=== PATIENT | male | born 1970 | race Caucasian/White ===

== ENCOUNTER 2018-10-18 23:22 | Emergency (ER) | payer MEDICARE, MEDICAID ==
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
[2018-10-19 00:19] VITALS: BP 106/71
[2018-10-19 01:46] VITALS: PULSE 68; O2SAT 98
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
== END 2018-10-19 01:48 | disposition home or self-care (01) ==
LOC: ED 23:22
DX: S02.0XXA Fracture of vault of skull, initial encounter for closed fracture (principal); Y04.0XXA Assault by unarmed brawl or fight, initial encounter; Y93.89 Activity, other specified
CPT/HCPCS: 70450; 70486; 99283